=== PATIENT | female | born 2000 | race Caucasian/White ===

== ENCOUNTER 2024-04-17 12:34 | Emergency (ER) | payer MEDICAID ==
[~2024-04-17] VITALS: Ht 162.6 cm; Wt 70.2 kg
[2024-04-17 12:38] VITALS: O2SAT 100
[2024-04-17 12:42] VITALS: BP 155/72; PULSE 87; RESP 18; TEMP 98.5; O2SAT 100
[2024-04-17 13:19] LABS: BASOPHILS % 0.5 % (0.0-2.0); EOSINOPHILS % 0.3 % (0.0-5.0); HEMATOCRIT. 35.9 % (36.0-48.0); HEMOGLOBIN. 11.9 g/dL (12.0-16.0); MEAN CORPUSCULAR HEMOGLOBIN 27.2 pg (28.0-32.0); MEAN CORPUSCULAR HGB CONC 33.1 g/dL (31.0-37.0); MEAN CORPUSCULAR VOLUME 82.3 fL (81.0-99.0); MEAN PLATELET VOLUME 7.7 fl (7.4-10.4); MONOCYTES % 5.2 % (2.0-8.0); PLATELET 254 x1000/uL (130-400); RED BLOOD CELL COUNT 4.36 mill/uL (4.2-5.4); RED CELL DISTRIBUTION WIDTH 18.2 % (11.6-14.6); WHITE BLOOD COUNT 5.4 x1000/uL (4.5-11.0)
[2024-04-17 13:25] LABS: CHLORIDE 110 mEq/L (98-107); POTASSIUM 3.7 mEq/L (3.5-5.1); SODIUM 142 mEq/L (136-145)
[2024-04-17 13:26] LABS: CARBON DIOXIDE 25 mEq/L (21-32)
[2024-04-17 13:27] LABS: CALCIUM 9.3 mg/dL (8.7-10.4)
[2024-04-17 13:31] LABS: CREATININE 0.7 mg/dL (0.6-1.0); GLUCOSE 104 mg/dL (70-105)
[2024-04-17 13:56] LABS: ACETAMINOPHEN 39 ug/mL (10-30); ALANINE AMINOTRANSFERASE 7 IU/L (10-49); ALBUMIN 4.5 g/dL (3.2-4.8); ASPARTATE AMINOTRANSFERASE 12 IU/L (<34); BILIRUBIN DIRECT 0.2 mg/dL (<=3.0); BILIRUBIN TOTAL 0.6 mg/dL (0.1-1.0)
[2024-04-17 14:13] LABS: UREA NITROGEN BLOOD < 5 mg/dL (9-23)
[2024-04-17 14:14] LABS: ETHANOL BLOOD < 10 mg/dL (<10)
[2024-04-17 14:23] LABS: CLARITY URINE CLOUDY (CLEAR); COLOR URINE YELLOW (YELLOW); GLUCOSE URINE NEGATIVE (NEGATIVE); KETONES URINE NEGATIVE (NEGATIVE); LEUKOCYTE ESTERASE URINE 2+ (NEGATIVE); NITRITE URINE NEGATIVE (NEGATIVE); OCCULT BLOOD URINE NEGATIVE (NEGATIVE); PH URINE 5.5 (4.5-8.0); PROTEIN URINE NEGATIVE (NEGATIVE); SPECIFIC GRAVITY URINE 1.026 (1.005-1.030); UROBILINOGEN URINE 0.2 E.U./dL (0.2-1.0)
[2024-04-17 14:24] LABS: HCG SCREEN NEGATIVE
[2024-04-17 14:34] LABS: BACTERIA URINE 2+; RBC URINE 0-2 /hpf (0-2); SQUAMOUS EPITHELIAL CELL URINE 2+ /lpf (RARE/1+); YEAST URINE NONE SEEN
[2024-04-17 14:56] LABS: *AMPHETAMINES SCREEN URINE NEGATIVE (NEGATIVE); *BARBITURATES SCREEN URINE NEGATIVE (NEGATIVE); *BENZODIAZEPINES SCREEN URINE NEGATIVE (NEGATIVE); *COCAINE SCREEN URINE NEGATIVE (NEGATIVE); METHADONE URINE SCREEN NEGATIVE (NEGATIVE); OPIATES URINE SCREEN NEGATIVE (NEGATIVE); PHENCYCLIDINE URINE SCREEN NEGATIVE (NEGATIVE)
[2024-04-17 14:57] LABS: CANNABINOID URINE SCREEN NEGATIVE (NEGATIVE); ECSTASY MDMA SCREEN URINE CONF.TEST INDICATED (NEGATIVE)
[2024-04-17 20:38] LABS: ACETAMINOPHEN 5 ug/mL (10-30); ALANINE AMINOTRANSFERASE < 7 IU/L (10-49); ALBUMIN 4.4 g/dL (3.2-4.8); ASPARTATE AMINOTRANSFERASE 13 IU/L (<34); BILIRUBIN DIRECT 0.2 mg/dL (<=3.0); BILIRUBIN TOTAL 0.6 mg/dL (0.1-1.0)
== END 2024-04-17 21:01 | disposition home or self-care (01) ==
LOC: ER 12:34
DX: T43.211A Poisoning by selective serotonin and norepinephrine reuptake inhibitors, accidental (unintentional), initial encounter (principal); X58.XXXA Exposure to other specified factors, initial encounter
CPT/HCPCS: 36415; 80048; 80076; 80305; 80307; 80320; 80329; 81003; 84703; 85025; 93005; 99284; G0480

== ENCOUNTER 2025-01-19 19:24 | Emergency (ER) | payer MEDICAID ==
[~2025-01-19] VITALS: Ht 162.6 cm; Wt 87.0 kg
[2025-01-19 19:28] VITALS: O2SAT 100
[2025-01-19 20:20] LABS: *AMPHETAMINES SCREEN URINE NEGATIVE (NEGATIVE); *BARBITURATES SCREEN URINE NEGATIVE (NEGATIVE); *BENZODIAZEPINES SCREEN URINE NEGATIVE (NEGATIVE)
[2025-01-19 20:21] LABS: *COCAINE SCREEN URINE NEGATIVE (NEGATIVE); CANNABINOID URINE SCREEN NEGATIVE (NEGATIVE); ECSTASY MDMA SCREEN URINE NEGATIVE (NEGATIVE); METHADONE URINE SCREEN NEGATIVE (NEGATIVE); OPIATES URINE SCREEN NEGATIVE (NEGATIVE); PHENCYCLIDINE URINE SCREEN NEGATIVE (NEGATIVE)
[2025-01-19 20:24] LABS: CREATININE 0.8 mg/dL (0.6-1.0)
[2025-01-19 20:25] LABS: ETHANOL BLOOD < 10 mg/dL (<10); UREA NITROGEN BLOOD 8 mg/dL (9-23)
[2025-01-19 20:35] LABS: BASOPHILS % 0.6 % (0.0-2.0); EOSINOPHILS % 2.6 % (0.0-5.0); HEMATOCRIT. 35.2 % (36.0-48.0); HEMOGLOBIN. 11.4 g/dL (12.0-16.0); LYMPHOCYTES % 38.8 % (20.0-50.0); MEAN PLATELET VOLUME 8.5 fl (7.4-10.4); MONOCYTES % 5.2 % (2.0-8.0); NEUTROPHILS % 52.8 % (40.0-76.0); PLATELET 304 x1000/uL (130-400); RED BLOOD CELL COUNT 4.48 mill/uL (4.2-5.4); RED CELL DISTRIBUTION WIDTH 15.6 % (11.6-14.6)
[2025-01-19 20:59] LABS: HCG SCREEN NEGATIVE
[2025-01-19] MEDS ORDERED: DIPHENHYDRAMINE 50MG CAPSULE PO ONE (21:45)
[2025-01-19] MEDS: DIPHENHYDRAMINE 25MG CAPSULE PO SCH (21:51)
[2025-01-20 08:57] LABS: CLARITY URINE CLEAR (CLEAR); COLOR URINE DARK YELLOW (YELLOW); GLUCOSE URINE NEGATIVE (NEGATIVE); KETONES URINE NEGATIVE (NEGATIVE); LEUKOCYTE ESTERASE URINE 1+ (NEGATIVE); NITRITE URINE NEGATIVE (NEGATIVE); OCCULT BLOOD URINE 3+ (NEGATIVE); PH URINE 6.0 (4.5-8.0); PROTEIN URINE NEGATIVE (NEGATIVE); SPECIFIC GRAVITY URINE 1.026 (1.005-1.030); UROBILINOGEN URINE 1.0 E.U./dL (0.2-1.0)
[2025-01-20 09:07] LABS: MUCUS URINE 2+ /lpf (< = 2+); SQUAMOUS EPITHELIAL CELL URINE 2+ /lpf (RARE/1+)
[2025-01-20 09:10] LABS: RBC URINE 25-50 /hpf (0-2)
[2025-01-20 09:12] LABS: BACTERIA URINE 2+
[2025-01-20 11:10] VITALS: BP 113/62; PULSE 71; RESP 18; TEMP 37; O2SAT 99
[2025-01-20 11:20] VITALS: TEMP 98.6
[2025-01-20] MEDS: ACETAMINOPHEN 325MG TABLET PO ONE (11:20)
== END 2025-01-20 11:25 | disposition home or self-care (01) ==
LOC: ER 19:24
DX: R45.851 Suicidal ideations (principal); Z20.822 Contact with and (suspected) exposure to COVID-19; Z79.899 Other long term (current) drug therapy
CPT/HCPCS: 80305; 80048; 80307; 80329; 80320; 84703; 85025; 36415; 99285; 87426; 81003; 87086; Q0163; G0480

== ENCOUNTER 2025-02-28 12:52 | Emergency (ER) | payer MEDICAID ==
[~2025-02-28] VITALS: Ht 162.6 cm; Wt 86.0 kg
[2025-02-28 12:58] VITALS: O2SAT 100
[2025-02-28 15:14] LABS: BASOPHILS % 0.3 % (0.0-2.0); EOSINOPHILS % 0.6 % (0.0-5.0); HEMATOCRIT. 33.7 % (36.0-48.0); HEMOGLOBIN. 10.8 g/dL (12.0-16.0); LYMPHOCYTES % 27.0 % (20.0-50.0); MEAN PLATELET VOLUME 7.2 fl (7.4-10.4); MONOCYTES % 5.4 % (2.0-8.0); NEUTROPHILS % 66.7 % (40.0-76.0); PLATELET 263 x1000/uL (130-400); RED BLOOD CELL COUNT 4.38 mill/uL (4.2-5.4); RED CELL DISTRIBUTION WIDTH 15.0 % (11.6-14.6)
[2025-02-28 15:28] LABS: CREATININE 0.8 mg/dL (0.6-1.0); UREA NITROGEN BLOOD < 5 mg/dL (9-23)
[2025-02-28 15:29] LABS: ETHANOL BLOOD < 10 mg/dL (<10)
[2025-02-28 15:30] LABS: ASPARTATE AMINOTRANSFERASE 14 IU/L (<34); BILIRUBIN DIRECT 0.2 mg/dL (<=3.0); BILIRUBIN TOTAL 0.8 mg/dL (0.1-1.0); PROTEIN TOTAL 7.1 g/dL (6.0-8.3)
[2025-02-28 15:35] LABS: HCG SCREEN NEGATIVE
[2025-02-28] MEDS ORDERED: IBUPROFEN 600MG TABLET PO ONE (16:45)
[2025-02-28 17:45] VITALS: BP 127/62; PULSE 65; RESP 17; TEMP 36.7; O2SAT 100
== END 2025-02-28 18:44 | disposition home or self-care (01) ==
LOC: ER 12:52
DX: R45.851 Suicidal ideations (principal); F31.9 Bipolar disorder, unspecified; Z20.822 Contact with and (suspected) exposure to COVID-19
CPT/HCPCS: 36415; 80048; 80076; 80320; 84703; 85025; 99285; G0480

== ENCOUNTER 2025-03-02 09:23 | Emergency (ER) | payer MEDICAID ==
[~2025-03-02] VITALS: Ht 167.6 cm; Wt 80.0 kg
[2025-03-02 09:42] VITALS: O2SAT 100
[2025-03-02 10:10] LABS: BASOPHILS % 0.7 % (0.0-2.0); EOSINOPHILS % 1.2 % (0.0-5.0); HEMATOCRIT. 36.3 % (36.0-48.0); HEMOGLOBIN. 11.4 g/dL (12.0-16.0); LYMPHOCYTES % 31.9 % (20.0-50.0); MEAN PLATELET VOLUME 7.5 fl (7.4-10.4); MONOCYTES % 5.3 % (2.0-8.0); NEUTROPHILS % 60.9 % (40.0-76.0); PLATELET 297 x1000/uL (130-400); RED BLOOD CELL COUNT 4.69 mill/uL (4.2-5.4); RED CELL DISTRIBUTION WIDTH 15.4 % (11.6-14.6)
[2025-03-02 10:24] LABS: CREATININE 0.9 mg/dL (0.6-1.0)
[2025-03-02 10:25] LABS: ETHANOL BLOOD < 10 mg/dL (<10); UREA NITROGEN BLOOD < 5 mg/dL (9-23)
[2025-03-02 10:26] LABS: ASPARTATE AMINOTRANSFERASE 14 IU/L (<34)
[2025-03-02 10:27] LABS: BILIRUBIN DIRECT 0.2 mg/dL (<=3.0); BILIRUBIN TOTAL 0.7 mg/dL (0.1-1.0); PROTEIN TOTAL 7.5 g/dL (6.0-8.3)
[2025-03-02 10:41] LABS: HCG SCREEN NEGATIVE
[2025-03-02 11:29] LABS: CLARITY URINE CLOUDY (CLEAR); COLOR URINE YELLOW (YELLOW); GLUCOSE URINE NEGATIVE (NEGATIVE); KETONES URINE TRACE (NEGATIVE); LEUKOCYTE ESTERASE URINE 2+ (NEGATIVE); NITRITE URINE NEGATIVE (NEGATIVE); OCCULT BLOOD URINE NEGATIVE (NEGATIVE); PH URINE 5.5 (4.5-8.0); PROTEIN URINE TRACE (NEGATIVE); SPECIFIC GRAVITY URINE 1.027 (1.005-1.030); UROBILINOGEN URINE 1.0 E.U./dL (0.2-1.0)
[2025-03-02 11:47] LABS: *AMPHETAMINES SCREEN URINE NEGATIVE (NEGATIVE); *BARBITURATES SCREEN URINE NEGATIVE (NEGATIVE); *BENZODIAZEPINES SCREEN URINE NEGATIVE (NEGATIVE); *COCAINE SCREEN URINE NEGATIVE (NEGATIVE)
[2025-03-02 11:48] LABS: CANNABINOID URINE SCREEN NEGATIVE (NEGATIVE); ECSTASY MDMA SCREEN URINE NEGATIVE (NEGATIVE); METHADONE URINE SCREEN NEGATIVE (NEGATIVE); OPIATES URINE SCREEN NEGATIVE (NEGATIVE); PHENCYCLIDINE URINE SCREEN NEGATIVE (NEGATIVE)
[2025-03-02 11:56] LABS: SQUAMOUS EPITHELIAL CELL URINE 1+ /lpf (RARE/1+)
[2025-03-02 11:57] LABS: BACTERIA URINE 1+; MUCUS URINE TRACE /lpf (< = 2+); WBC URINE 50-100 /hpf (0-2)
[2025-03-02 11:58] LABS: RBC URINE 0-2 /hpf (0-2)
[2025-03-02] MEDS: CEPHALEXIN 250MG CAPSULE PO ONE (17:26)
[2025-03-02 21:26] VITALS: BP 121/69; PULSE 66; RESP 18; TEMP 36.9; O2SAT 100
== END 2025-03-02 21:31 ==
LOC: ER 09:23
DX: R45.851 Suicidal ideations (principal); N39.0 Urinary tract infection, site not specified; F31.9 Bipolar disorder, unspecified; F20.9 Schizophrenia, unspecified; Z20.822 Contact with and (suspected) exposure to COVID-19; Z79.899 Other long term (current) drug therapy
CPT/HCPCS: 36415; 80048; 80076; 80305; 80320; 81003; 84703; 85025; 87426; 99283; 99285; G0480

== ENCOUNTER 2025-03-24 21:33 | Emergency (ER) | payer MEDICAID ==
[~2025-03-24] VITALS: Ht 162.6 cm; Wt 95.3 kg
[2025-03-24 22:01] VITALS: O2SAT 99
[2025-03-24 23:39] LABS: BASOPHILS % 0.6 % (0.0-2.0); EOSINOPHILS % 2.4 % (0.0-5.0); HEMATOCRIT. 35.1 % (36.0-48.0); HEMOGLOBIN. 11.2 g/dL (12.0-16.0); LYMPHOCYTES % 41.5 % (20.0-50.0); MEAN PLATELET VOLUME 7.9 fl (7.4-10.4); MONOCYTES % 5.5 % (2.0-8.0); NEUTROPHILS % 50.0 % (40.0-76.0); PLATELET 315 x1000/uL (130-400); RED BLOOD CELL COUNT 4.60 mill/uL (4.2-5.4); RED CELL DISTRIBUTION WIDTH 15.2 % (11.6-14.6)
[2025-03-24 23:53] LABS: CREATININE 0.7 mg/dL (0.6-1.0); UREA NITROGEN BLOOD 9 mg/dL (9-23)
[2025-03-24 23:55] LABS: ASPARTATE AMINOTRANSFERASE 13 IU/L (<34); BILIRUBIN DIRECT 0.1 mg/dL (<=3.0); BILIRUBIN TOTAL 0.4 mg/dL (0.1-1.0); PROTEIN TOTAL 7.5 g/dL (6.0-8.3)
[2025-03-25 00:07] LABS: HCG SCREEN NEGATIVE
[2025-03-25] MEDS: DIPHENHYDRAMINE 25MG CAPSULE PO ONE (00:10)
[2025-03-25] MEDS: KETOROLAC 15MG/ML VIAL IM ONE (00:10)
[2025-03-25] MEDS: METOCLOPRAMIDE HCL 10MG TABLET PO ONE (00:10)
[2025-03-25 00:15] VITALS: TEMP 36.8
[2025-03-25 00:28] LABS: CLARITY URINE TURBID (CLEAR); COLOR URINE RED (YELLOW); GLUCOSE URINE NEGATIVE (NEGATIVE); KETONES URINE NEGATIVE (NEGATIVE); LEUKOCYTE ESTERASE URINE 2+ (NEGATIVE); NITRITE URINE NEGATIVE (NEGATIVE); OCCULT BLOOD URINE 2+ (NEGATIVE); PH URINE 5.0 (4.5-8.0); PROTEIN URINE 2+ (NEGATIVE); SPECIFIC GRAVITY URINE 1.025 (1.005-1.030); UROBILINOGEN URINE 0.2 E.U./dL (0.2-1.0)
[2025-03-25] MEDS ORDERED: CEPH500C2 MT (01:24)
[2025-03-25] MEDS ORDERED: NAPR-1176 MT (01:24)
[2025-03-25 02:11] VITALS: BP 116/74; PULSE 59; RESP 14; O2SAT 99
[2025-03-25 04:51] LABS: SQUAMOUS EPITHELIAL CELL URINE FEW /lpf (RARE/1+)
[2025-03-25 04:52] LABS: RBC URINE TNTC /hpf (0-2)
[2025-03-25 04:53] LABS: BACTERIA URINE TRACE
== END 2025-03-25 02:13 | disposition home or self-care (01) ==
LOC: ER 21:33
DX: N39.0 Urinary tract infection, site not specified (principal); R51.9 Headache, unspecified; R11.2 Nausea with vomiting, unspecified; F31.9 Bipolar disorder, unspecified; Z79.1 Long term (current) use of non-steroidal anti-inflammatories (NSAID)
CPT/HCPCS: 99283; 80076; 80048; 81003; 81025; 84703; 83690; 85025; 36415; 96372; J1885; Q0163; J8597